=== PATIENT | male | born 1985 | race Caucasian/White ===

== ENCOUNTER 2017-09-30 20:27 | Emergency (ER) | END 2017-10-01 04:11 | disposition home or self-care (01) ==

== ENCOUNTER 2017-10-16 14:20 | Emergency (ER) | END 2017-10-16 17:25 | disposition home or self-care (01) ==

== ENCOUNTER 2017-10-16 19:41 | Emergency (ER) | END 2017-10-17 02:51 | disposition short-term general hospital (02) ==